=== PATIENT | male | born 1945 | race Caucasian/White ===

== ENCOUNTER 2021-10-01 08:08 | Day surgery (SDC) | payer MEDICARE, OTHER ==
[2021-09-29 12:08] VITALS: BMI 29.2
[~2021-10-01 08:08] MED LIST: LACTATED RINGERS 1,000 ML IV SCH
[2021-10-01 08:51] VITALS: RESP 16; TEMP 97.1
[2021-10-01] MEDS ORDERED: LACTATED RINGERS 1,000 ML IV ONE (08:58)
[2021-10-01] MEDS ORDERED: PROPOFOL 10 MG/ML 20 ML VIAL IV ONE (09:19)
--- NOTE | 2021-10-01 09:21 | P.GSHP ---
History of Present Illness H&P Date: 10/01/21 Chief Complaint: Screening colonoscopy This a 76-year-old male who presents today for screening colonoscopy. Patient denies any significant GI complaints. Past Medical History Past Medical History: Blood Disorder, GERD/Reflux, Hypertension Additional Past Medical History / Comment(s): THALASSEMIA ANEMIA., SCIATICA History of Any Multi-Drug Resistant Organisms: None Reported Past Surgical History: Appendectomy, Tonsillectomy Additional Past Surgical History / Comment(s): APPENDECTOMY X2 WITH MESH, COLONOSCOPY Past Anesthesia/Blood Transfusion Reactions: No Reported Reaction, Motion Sickness Additional Past Anesthesia/Blood Transfusion Reaction / Comment(s): JEHOVAH WITNESSS- NO BLOOD PRODUCTS. Past Psychological History: Depression Smoking Status: Never smoker Past Alcohol Use History: None Reported Past Drug Use History: None Reported - Past Family History Father Additional Family Medical History / Comment(s): PARTIAL LUNG REMOVED, ? COLON RESECTION Medications and Allergies Home Medications Medication Instructions Recorded Confirmed Type Ascorbic Acid [Vitamin C] 500 mg PO HS 09/29/21 09/29/21 History Cholecalciferol [Vitamin D3 (25 50 mcg PO DAILY 09/29/21 09/29/21 History Mcg = 1000 Iu)] Citalopram Hydrobromide [CeleXA] 20 mg PO DAILY 09/29/21 09/29/21 History Famotidine [Pepcid] 40 mg PO HS 09/29/21 09/29/21 History Ferrous Sulfate [Feosol] 325 mg PO HS 09/29/21 09/29/21 History Gabapentin 600 mg PO HS 09/29/21 09/29/21 History Loratadine 10 mg PO DAILY 09/29/21 09/29/21 History Multivit-Min/Folic/Vit K/Lycop 1 each PO DAILY 09/29/21 09/29/21 History [Men's Multivitamin Tablet] atenoloL [Tenormin] 25 mg PO DAILY 09/29/21 09/29/21 History Allergies Allergy/AdvReac Type Severity Reaction Status Date / Time Penicillins Allergy Unknown Unknown Verified 10/01/21 08:38 Surgical - Exam Vital Signs Temp Pulse Resp BP Pulse Ox 97.1 F L 59 L 16 154/89 97 10/01/21 08:40 10/01/21 08:40 10/01/21 08:40 10/01/21 08:40 10/01/21 08:40 - General well developed, well nourished, no distress - Eyes PERRL - ENT normal pinna - Neck no masses - Respiratory normal expansion - Cardiovascular Rhythm: regular - Abdomen Abdomen: soft, non tender Assessment and Plan Assessment: We'll perform screening colonoscopy.
--- NOTE | 2021-10-01 09:30 | P.OP ---
Date of Procedure: 10/01/21 Preoperative Diagnosis: Screening colonoscopy Postoperative Diagnosis: Severe diverticulosis of sigmoid colon Procedure(s) Performed: Colonoscopy Anesthesia: MAC Surgeon: Julian Beaulieu Pathology: none sent Condition: stable Disposition: PACU Description of Procedure: The patient's placed on the endoscopy table in the lateral position. He received IV sedation. Digital rectal exam was performed which revealed no ebonized. The flexible colonoscope was then placed patient anus and passed throughout the colon. In the sigmoid colon there was severe diverticulosis of colon. The colon appeared to be slightly inflamed. At this point it was decided not to proceed any further with colonoscopy in order to prevent injury to the valve. Scope withdrawn. The rectum appeared normal. Scope withdrawn for patient. Patient was scheduled for a barium enema.
[2021-10-01 10:06] VITALS: PULSE 58
[2021-10-01 10:27] VITALS: BP 131/71
--- NOTE | 2021-10-02 14:33 | FL ---
EXAMINATION TYPE: FL barium enema w air contrast DATE OF EXAM: 10/01/2021 COMPARISON: NONE HISTORY: Incomplete colonoscopy TECHNIQUE: A double contrast barium enema study is performed. A total of 4 minutes and 21 seconds o f fluoroscopic time was utilized during procedure and 34 images obtained. FINDINGS: Admittance Attendant view of the abdomen shows overall non-obstructive bowel gas pattern. Postsurgical ch fallon is previous hernia repair. Assessment for small polyps is limited due to retained fecal debris. There is extensive diverticulosi s of the sigmoid colon which demonstrates extensive redundancy. No annular constricting lesion or foc al mass. Question a small 3 mm polyp within the right colon near the cecum just distal to the ileocecal valve. No evidence of any obstructing or constricting lesion throughout the colon. The terminal ileum was refluxed and appears within normal limits. IMPRESSION: 1. Extensive redundancy of the sigmoid colon with the findings compatible with evidence of diverticul osis. There is a short segmental area of mild narrowing or reduced caliber of the distal sigmoid colo n which could be related to severe diverticulosis. Consider CT colonography if clinically warranted. 2. There is limitation and assessment for small polyps due to retained fecal debris. Question a small 3 mm polyp within the right colon just distal to the ileocecal valve.
== END 2021-10-01 10:40 | disposition home or self-care (01) ==
LOC: ORWHC2ENDO 08:08
PROVIDERS: ATTEND Surgery
DX: Z12.11 Encounter for screening for malignant neoplasm of colon (principal); K57.30 Diverticulosis of large intestine without perforation or abscess without bleeding; Z53.09 Procedure and treatment not carried out because of other contraindication; I10 Essential (primary) hypertension; K21.9 Gastro-esophageal reflux disease without esophagitis; D56.9 Thalassemia, unspecified; M54.30 Sciatica, unspecified side; F32.A Depression, unspecified; Z79.899 Other long term (current) drug therapy; Z88.0 Allergy status to penicillin; Z90.49 Acquired absence of other specified parts of digestive tract; Z90.89 Acquired absence of other organs
CPT/HCPCS: 74280; J2704; G0121

== ENCOUNTER 2021-10-09 17:45 | Inpatient (IN) | payer MEDICARE, OTHER ==
[2021-10-09] MEDS ORDERED: MECLIZINE 12.5 MG TAB PO STA (18:56)
[2021-10-09] MEDS ORDERED: DIAZEPAM 5 MG/ML 2 ML INJ IVP STA (18:56)
[2021-10-09] MEDS ORDERED: SODIUM CHLORIDE 0.9% 1,000 ML IV STA (18:57)
[2021-10-09] MEDS ORDERED: ONDANSETRON 4 MG/2 ML VIAL IVP STA (18:57)
[2021-10-09] MEDS ORDERED: SODIUM CHLORIDE 0.9% 1,000 ML IV ONE (19:15)
[2021-10-09] MEDS ORDERED: ONDANSETRON 4 MG/2 ML VIAL IVP ONE (19:15)
[2021-10-09] MEDS ORDERED: DIAZEPAM 5 MG/ML 2 ML INJ IVP ONE (19:15)
[2021-10-09] MEDS ORDERED: MECLIZINE 25 MG TAB PO ONE (19:15)
[2021-10-09 19:44] LABS: Anisocytosis Slight; Basophils % (A) 0 %; Eosinophils % (A) 0 %; HCT 37.2 % (39.0-53.0); HGB 11.7 gm/dL (13.0-17.5); Hypochromasia Slight; Lymphocytes # (A) 0.6 k/uL (1.0-4.8); Lymphocytes % (A) 6 %; MCH 23.2 pg (25.0-35.0); MCHC 31.4 g/dL (31.0-37.0); Mean Platelet Volume 7.8; Microcytosis Slight; Monocytes # (A) 0.3 k/uL (0-1.0); Monocytes % (A) 3 %; Neutrophils # (A) 8.7 k/uL (1.3-7.7); Neutrophils % (A) 90 %; Platelet Count 179 k/uL (150-450); Poikilocytosis Slight; RBC 5.03 m/uL (4.30-5.90); RDW 16.5 % (11.5-15.5); WBC 9.8 k/uL (3.8-10.6)
[2021-10-09 19:52] LABS: ALT 10 U/L (4-49); AST 20 U/L (17-59); African American GFR (CKD) >90 (>60 ml/min/1.73 sqM); Albumin 3.4 g/dL (3.5-5.0); Alkaline Phosphatase 52 U/L (38-126); Anion Gap 4 mmol/L; Blood Urea Nitrogen 19 mg/dL (9-20); Calcium 8.3 mg/dL (8.4-10.2); Carbon Dioxide 25 mmol/L (22-30); Chloride 111 mmol/L (98-107); Glucose 140 mg/dL (74-99); Non-African American GFR(CKD) 78 (>60 ml/min/1.73 sqM); Potassium 4.2 mmol/L (3.5-5.1); Sodium 140 mmol/L (137-145); Total Bilirubin 0.9 mg/dL (0.2-1.3); Total Protein 6.2 g/dL (6.3-8.2)
[2021-10-09 19:55] LABS: INR 1.1 (<1.2)
--- NOTE | 2021-10-09 20:27 | ED ---
General Adult HPI - General Chief complaint: Nausea/Vomiting/Diarrhea Stated complaint: Nausea and vomiting Time Seen by Provider: 10/09/21 18:00 Source: patient, EMS Mode of arrival: EMS Limitations: no limitations - History of Present Illness Initial comments: 76-year-old male with past medical history of thalassemia, hypertension presents to the emergency department with vertiginous symptoms. States that they were sudden onset around 10 AM this morning. He has room spinning sensation which is worse with positional changes. Patient has been laying down with his eyes closed. He denies any associated headache or visual changes. No recent head trauma. Denies any chiropractic manipulation of the neck. No unilateral numbness or weakness in his extremities. No history of stroke. Patient has been nauseated without vomiting. Does not have any medications at home to take for his symptoms. Admits 1 history of previous in the past however this resolved with out any intervention and was short-term. No other alleviating, precipitating or modifying factors - Related Data Home Medications Medication Instructions Recorded Confirmed Ascorbic Acid [Vitamin C] 500 mg PO HS 09/29/21 10/09/21 Cholecalciferol [Vitamin D3 (25 50 mcg PO DAILY 09/29/21 10/09/21 Mcg = 1000 Iu)] Citalopram Hydrobromide [CeleXA] 20 mg PO DAILY 09/29/21 10/09/21 Famotidine [Pepcid] 40 mg PO HS 09/29/21 10/09/21 Ferrous Sulfate [Feosol] 325 mg PO HS 09/29/21 10/09/21 Gabapentin 600 mg PO BID 09/29/21 10/09/21 Loratadine 10 mg PO DAILY 09/29/21 10/09/21 Multivit-Min/Folic/Vit K/Lycop 1 tab PO DAILY 09/29/21 10/09/21 [Men's Multivitamin Tablet] atenoloL [Tenormin] 25 mg PO DAILY 09/29/21 10/09/21 Allergies Allergy/AdvReac Type Severity Reaction Status Date / Time Penicillins Allergy Unknown Unknown Verified 10/09/21 19:27 Review of Systems ROS Statement: Those systems with pertinent positive or pertinent negative responses have been documented in the HPI. ROS Other: All systems not noted in ROS Statement are negative. Past Medical History Past Medical History: Blood Disorder, GERD/Reflux, Hypertension Additional Past Medical History / Comment(s): THALASSEMIA ANEMIA., SCIATICA History of Any Multi-Drug Resistant Organisms: None Reported Past Surgical History: Appendectomy, Tonsillectomy Additional Past Surgical History / Comment(s): APPENDECTOMY X2 WITH MESH, COLONOSCOPY Past Anesthesia/Blood Transfusion Reactions: No Reported Reaction, Motion Sickness Additional Past Anesthesia/Blood Transfusion Reaction / Comment(s): JEHOVAH WITNESSS- NO BLOOD PRODUCTS. Past Psychological History: Depression Smoking Status: Never smoker Past Alcohol Use History: None Reported Past Drug Use History: None Reported - Past Family History Father Additional Family Medical History / Comment(s): PARTIAL LUNG REMOVED, ? COLON RESECTION General Exam Limitations: no limitations General appearance: alert, in distress Head exam: Present: atraumatic, normocephalic, normal inspection Eye exam: Present: PERRL, EOMI, nystagmus (rotary). Absent: scleral icterus, conjunctival injection, periorbital swelling ENT exam: Present: normal exam, mucous membranes moist Neck exam: Present: normal inspection. Absent: tenderness, meningismus, lymphadenopathy Respiratory exam: Present: normal lung sounds bilaterally. Absent: respiratory distress, wheezes, rales, rhonchi, stridor Cardiovascular Exam: Present: regular rate, normal rhythm, normal heart sounds. Absent: systolic murmur, diastolic murmur, rubs, gallop, clicks GI/Abdominal exam: Present: soft, normal bowel sounds. Absent: distended, tenderness, guarding, rebound, rigid Extremities exam: Present: normal inspection, full ROM, normal capillary refill. Absent: tenderness, pedal edema, joint swelling, calf tenderness Back exam: Present: normal inspection Neurological exam: Present: alert, oriented X3, CN II-XII intact Psychiatric exam: Present: normal affect, normal mood Skin exam: Present: warm, dry, intact, normal color. Absent: rash Course Vital Signs 10/09/21 10/09/21 10/09/21 17:48 21:53 23:24 Temperature 98.9 F 98.1 F Pulse Rate 70 71 Pulse Rate [ 75 Pulse Oximetery ] Respiratory 20 18 20 Rate Blood Pressure 146/67 126/69 Blood Pressure 129/68 [Left Arm] O2 Sat by Pulse 99 95 97 Oximetry EKG Findings - EKG Comments: EKG Findings:: EKG demonstrates sinus rhythm with a rate of 70. HI interval 155. QRS 87. QTC of 434. No acute ST segment elevations or depressions Medical Decision Making - Medical Decision Making Upon arrival patient is placed into room 24. A thorough history and physical exam was performed. Patient does have rotary nystagmus on physical exam. IV is established and laboratory studies are conducted. Patient is given 2 mg of Valium, 4 mg of Zofran and 25 mg of oral meclizine. He does go over for a CT of his brain as well as CT angiography which demonstrates no acute intracranial process. Patient is reevaluated and continues to have persistent vertiginous symptoms and nausea with medication administration. He was given Protonix, Reglan for persistent symptoms. Recommended admission for neurology consultation which the patient did agree to. Spoke with Ileana from [facility] who agreed to admit the patient. He was taken to the floor in stable condition - Lab Data Result diagrams: 10/11/21 07:00 10/11/21 07:00 Lab Results 10/09/21 10/09/21 10/09/21 Range/Units 19:34 19:34 19:34 WBC (3.8-10.6) k/uL RBC (4.30-5.90) m/uL Hgb (13.0-17.5) gm/dL Hct (39.0-53.0) % MCV (80.0-100.0) fL MCH (25.0-35.0) pg MCHC (31.0-37.0) g/dL RDW (11.5-15.5) % Plt Count (150-450) k/uL MPV Neutrophils % % Lymphocytes % % Monocytes % % Eosinophils % % Basophils % % Neutrophils # (1.3-7.7) k/uL Lymphocytes # (1.0-4.8) k/uL Monocytes # (0-1.0) k/uL Eosinophils # (0-0.7) k/uL Basophils # (0-0.2) k/uL Hypochromasia Poikilocytosis Anisocytosis Microcytosis PT 12.0 (9.0-12.0) sec INR 1.1 (<1.2) Sodium 140 (137-145) mmol/L Potassium 4.2 (3.5-5.1) mmol/L Chloride 111 H (98-107) mmol/L Carbon Dioxide 25 (22-30) mmol/L Anion Gap 4 mmol/L BUN 19 (9-20) mg/dL Creatinine 0.95 (0.66-1.25) mg/dL Est GFR (CKD-EPI)AfAm >90 (>60 ml/min/1.73 sqM) Est GFR (CKD-EPI)NonAf 78 (>60 ml/min/1.73 sqM) Glucose 140 H (74-99) mg/dL Calcium 8.3 L (8.4-10.2) mg/dL Total Bilirubin 0.9 (0.2-1.3) mg/dL AST 20 (17-59) U/L ALT 10 (4-49) U/L Alkaline Phosphatase 52 (38-126) U/L Troponin I <0.012 (0.000-0.034) ng/mL Total Protein 6.2 L (6.3-8.2) g/dL Albumin 3.4 L (3.5-5.0) g/dL 10/09/21 Range/Units 19:34 WBC 9.8 (3.8-10.6) k/uL RBC 5.03 (4.30-5.90) m/uL Hgb 11.7 L (13.0-17.5) gm/dL Hct 37.2 L (39.0-53.0) % MCV 74.0 L (80.0-100.0) fL MCH 23.2 L (25.0-35.0) pg MCHC 31.4 (31.0-37.0) g/dL RDW 16.5 H (11.5-15.5) % Plt Count 179 (150-450) k/uL MPV 7.8 Neutrophils % 90 % Lymphocytes % 6 % Monocytes % 3 % Eosinophils % 0 % Basophils % 0 % Neutrophils # 8.7 H (1.3-7.7) k/uL Lymphocytes # 0.6 L (1.0-4.8) k/uL Monocytes # 0.3 (0-1.0) k/uL Eosinophils # 0.0 (0-0.7) k/uL Basophils # 0.0 (0-0.2) k/uL Hypochromasia Slight Poikilocytosis Slight Anisocytosis Slight Microcytosis Slight PT (9.0-12.0) sec INR (<1.2) Sodium (137-145) mmol/L Potassium (3.5-5.1) mmol/L Chloride (98-107) mmol/L Carbon Dioxide (22-30) mmol/L Anion Gap mmol/L BUN (9-20) mg/dL Creatinine (0.66-1.25) mg/dL Est GFR (CKD-EPI)AfAm (>60 ml/min/1.73 sqM) Est GFR (CKD-EPI)NonAf (>60 ml/min/1.73 sqM) Glucose (74-99) mg/dL Calcium (8.4-10.2) mg/dL Total Bilirubin (0.2-1.3) mg/dL AST (17-59) U/L ALT (4-49) U/L Alkaline Phosphatase (38-126) U/L Troponin I (0.000-0.034) ng/mL Total Protein (6.3-8.2) g/dL Albumin (3.5-5.0) g/dL Disposition Clinical Impression: Vertigo Disposition: ADMITTED IP TO THIS [facility] Condition: Stable Is patient prescribed a controlled substance at d/c from ED?: No Decision to Admit Reason: Admit from EC Decision Date: 10/09/21 Decision Time: 22:02
--- NOTE | 2021-10-09 20:48 | CT ---
EXAMINATION TYPE: CT brain wo con CT DLP: 1134.8 mGycm, Automated exposure control for dose reduction was used. DATE OF EXAM: 10/09/2021 8:15 PM COMPARISON: None. CLINICAL INDICATION:Male, 76 years old with history of DIZZINESS, VERTIGO TECHNIQUE: Brain: Multiple axial CT images of the brain were obtained without IV contrast. FINDINGS: Brain: Extra-axial spaces: No abnormal extra-axial fluid collections. Ventricular system: Within normal limits Cerebral parenchyma: No acute intraparenchymal hemorrhage or mass effect. The hearn-white junction is well differentiated. Cerebellum: Unremarkable. Mass effect: No evidence of midline shift. Intracranial vasculature: Atherosclerotic calcifications of the intracranial vessels. Soft tissues: Normal. Calvarium/osseous structures: No depressed skull fracture. Paranasal sinuses and mastoid air cells: Mild scattered paranasal sinus disease. Visualized orbits: Orbital contents are intact. IMPRESSION: No acute intracranial process.
--- NOTE | 2021-10-09 20:51 | CT ---
EXAMINATION TYPE: CT angio head neck CT DLP: 649.9 mGycm, Automated exposure control for dose reduction was used. DATE OF EXAM: 10/09/2021 8:33 PM COMPARISON: CT brain same day.. CLINICAL INDICATION:Male, 76 years old with history of DIZZINESS, VERTIGO TECHNIQUE: Axially acquired helical CT angiogram of the head and neck was obtained with contrast util izing 75 cc of Isovue-370 administered intravenously. Axial images are supplemented with 3D reconstru ctions which were post-processed at an independent workstation. NASCET criteria used. FINDINGS: CTA HEAD: No evidence of acute intracranial hemorrhage, mass effect, or midline shift. The ventricles, sulci, a nd cisterns are unremarkable. The visualized portions of the internal carotid arteries, middle cerebral arteries, anterior cerebral arteries, and posterior cerebral arteries are patent. The basilar and vertebral arteries are patent. CTA NECK: Right Carotid System: The common carotid artery and external carotid artery are patent. The carotid bifurcation demonstrate s no evidence of hemodynamically significant stenosis. The remaining portions of the internal carotid artery demonstrate normal size without significant narrowing. Left Carotid System: The common carotid artery and external carotid artery are patent. The carotid bifurcation demonstrate s no evidence of hemodynamically significant stenosis. The remaining portions of the internal carotid artery demonstrate normal size without significant narrowing. Vertebral arteries are patent without evidence hemodynamically significant stenosis. There is a three-vessel aortic arch. The origins of the great vessels are patent. No evidence of hemo dynamically significant stenosis. IMPRESSION: 1. No evidence of dissection of the cervical internal carotid arteries or vertebral arteries or any e vidence of significant stenosis at the carotid bifurcations. 2. No evidence of high-grade stenosis or intracranial aneurysm.
[2021-10-09] MEDS ORDERED: ACETAMINOPHEN TAB 325 MG TAB PO STA (21:36)
[2021-10-09] MEDS ORDERED: METOCLOPRAMIDE 5 MG/ML 2 ML VIAL IVP STA (21:36)
[2021-10-09] MEDS ORDERED: ACETAMINOPHEN TAB 325 MG TAB PO PRN (22:02)
[2021-10-09] MEDS ORDERED: NALOXONE 0.4 MG/ML 1 ML VIAL IV PRN (22:02)
[2021-10-09] MEDS: PANTOPRAZOLE 40 MG/10 ML VIAL IV SCH (23:42)
[2021-10-09] MEDS: SODIUM CHLORIDE 0.9% 1,000 ML IV SCH (23:43)
[2021-10-10] MEDS: PANTOPRAZOLE 40 MG/10 ML VIAL IV SCH (07:30)
[2021-10-10 07:39] LABS: Calcium 8.5 mg/dL (8.4-10.2); Potassium 3.9 mmol/L (3.5-5.1)
[2021-10-10 07:56] LABS: Anisocytosis Slight; Basophils % (A) 0 %; Eosinophils # (A) 0.1 k/uL (0-0.7); Eosinophils % (A) 1 %; HCT 36.3 % (39.0-53.0); HGB 11.2 gm/dL (13.0-17.5); Hypochromasia Moderate; Lymphocytes # (A) 2.4 k/uL (1.0-4.8); Lymphocytes % (A) 22 %; MCH 23.4 pg (25.0-35.0); MCHC 30.7 g/dL (31.0-37.0); MCV 76.3 fL (80.0-100.0); Mean Platelet Volume 8.6; Microcytosis Slight; Monocytes # (A) 0.7 k/uL (0-1.0); Monocytes % (A) 6 %; Neutrophils # (A) 7.4 k/uL (1.3-7.7); Neutrophils % (A) 69 %; Platelet Count 187 k/uL (150-450); RBC 4.76 m/uL (4.30-5.90); WBC 10.8 k/uL (3.8-10.6)
[2021-10-10] MEDS: MECLIZINE 12.5 MG TAB PO PRN (10:23)
--- NOTE | 2021-10-10 10:48 | P.CNNES ---
History of Present Illness Consult date: 10/10/21 Requesting physician: Awilda Caba Reason for Consult: intractable vertigo History of Present Illness: This is a 76-year-old gentleman with history of hypertension, thalassemia who presented emergency department on 10/09/2021 because of the dizziness. Noticed dizziness since 10:00 in the morning yesterday. He describes as if the room is spinning and it's worse with position. She does have nausea but denies any vom iting. He felt he has sinus infection a week earlier. He denies of any head trauma, any visual disturbance, headache, any focal weakness. He denies any history of stroke in the past. Today he feels his nausea is somewhat improved compared to initial presentation. Some of the workup in the hospital consisted of: CT of the head is reported as no acute intracranial process. CT and drug. The head and neck was reported as no evidence of dissection of cervical internal carotid arteries or vertebral arteries or any evidence of significant stenosis of the carotid bifurcation. No evidence of high-grade stenosis or intracranial aneurysm. Review of Systems Review of system: The 12 point system was reviewed and apparent positive and negative per HPI. Past Medical History Past Medical History: Blood Disorder, GERD/Reflux, Hypertension Additional Past Medical History / Comment(s): THALASSEMIA ANEMIA., SCIATICA History of Any Multi-Drug Resistant Organisms: None Reported Past Surgical History: Appendectomy, Tonsillectomy Additional Past Surgical History / Comment(s): APPENDECTOMY X2 WITH MESH, COLON OSCOPY Past Anesthesia/Blood Transfusion Reactions: No Reported Reaction, Motion Sickness Additional Past Anesthesia/Blood Transfusion Reaction / Comment(s): JEHOVAH WITNESSS- NO BLOOD PRODUCTS. Past Psychological History: Depression Smoking Status: Never smoker Past Alcohol Use History: None Reported Past Drug Use History: None Reported - Past Family History Father Additional Family Medical History / Comment(s): PARTIAL LUNG REMOVED, ? COLON RESECTION Medications and Allergies Home Medications Medication Instructions Recorded Confirmed Type Ascorbic Acid [Vitamin C] 500 mg PO HS 09/29/21 10/09/21 History Cholecalciferol [Vitamin D3 (25 50 mcg PO DAILY 09/29/21 10/09/21 History Mcg = 1000 Iu)] Citalopram Hydrobromide [CeleXA] 20 mg PO DAILY 09/29/21 10/09/21 History Famotidine [Pepcid] 40 mg PO HS 09/29/21 10/09/21 History Ferrous Sulfate [Feosol] 325 mg PO HS 09/29/21 10/09/21 History Gabapentin 600 mg PO BID 09/29/21 10/09/21 History Loratadine 10 mg PO DAILY 09/29/21 10/09/21 History Multivit-Min/Folic/Vit K/Lycop 1 tab PO DAILY 09/29/21 10/09/21 History [Men's Multivitamin Tablet] atenoloL [Tenormin] 25 mg PO DAILY 09/29/21 10/09/21 History Allergies Allergy/AdvReac Type Severity Reaction Status Date / Time Penicillins Allergy Unknown Unknown Verified 10/09/21 19:27 Physical Examination - Vital Signs Vital Signs: Vital Signs Temp Pulse Pulse Resp BP BP BP 10/10/21 07:40 74 18 10/10/21 07:00 98.2 F 67 16 109/52 10/10/21 02:41 98.3 F 74 18 113/61 10/09/21 23:24 98.1 F 75 20 129/68 10/09/21 21:53 71 18 126/69 10/09/21 17:48 98.9 F 70 20 146/67 Pulse Ox 10/10/21 07:40 10/10/21 07:00 94 L 10/10/21 02:41 97 10/09/21 23:24 97 10/09/21 21:53 95 10/09/21 17:48 99 Intake and Output 10/09/21 10/10/21 10/10/21 22:59 06:59 14:59 Output Total 475 Balance -475 Output: Urine 475 Other: Voiding Method Urinal Urinal # Voids 1 Weight 87.09 kg 87.09 kg GENERAL: The patient is lying in bed and is mild acute distress. CHEST: The heart rate is regular rate rhythm. No murmurs to auscultation. No carotid bruit bilaterally. LUNG: Clear to auscultation bilaterally no wheezing noted throughout. Not labored breathing. ABDOMEN/GI: Bowel sounds present in all 4 quadrants. No tenderness to palpation throughout. NEUROLOGICAL: Higher mental function: The patient is awake, alert, oriented to self, place and time. Patient is following commands. No aphasia and no neglect. Cranial nerves: The pupils are round, equal and reactive to light and accommodation. Visual mclean are full to confrontation throughout. Extraocular movement is rotatory nystagmus looking to left and upward. Facial sensation is normal to touch throughout. The facial strength is normal throughout. Hearing is mildly decreased bilaterally to hand rub. Tongue is midline and moved [id number] without any difficulty. No dysarthria is noted. Shoulder shrug is normal bilaterally. Motor: Gait was attempted but patient was feeling dizzy and could not tolerate stand up. The strength is 5 over 5 throughout. Normal tone and bulk. Cerebellum: Normal finger to nose heel to osborne bilaterally. Sensation: Sensation is normal to touch throughout. Reflexes (right/left): 2+ throughout. Plantars are downgoing bilaterally. Results - Laboratory Findings CBC and BMP: 10/10/21 06:58 10/10/21 06:58 Abnormal Lab Findings: Abnormal Labs 10/09/21 10/09/21 10/10/21 19:34 19:34 06:58 WBC 10.8 H Hgb 11.7 L 11.2 L Hct 37.2 L 36.3 L MCV 74.0 L 76.3 L MCH 23.2 L 23.4 L MCHC 30.7 L RDW 16.5 H 17.0 H Neutrophils # 8.7 H Lymphocytes # 0.6 L Chloride 111 H Glucose 140 H Calcium 8.3 L Total Protein 6.2 L Albumin 3.4 L 10/10/21 06:58 WBC Hgb Hct MCV MCH MCHC RDW Neutrophils # Lymphocytes # Chloride 112 H Glucose Calcium Total Protein Albumin Assessment and Plan Assessment: Acute vertigo and is seems the peripheral rather than central. Appears acute vestibular labyrinthitis. Hypertension Thalasemia Plan: In the ED the patient was given Valium of a total of 4 mg in total, meclizine a total of 50 mg, Reglan and Zofran. I started the patient on Antivert 12.5 mg 1 tablet 3 times a day when necessary, and to use Zofran 4 mg every hours as needed. Consulted for PT and OT for gait training. Every 4 hours neuro checks From a neurologic perspective patient does not need any further imaging at this time since it appears peripheral than central. Patient has no focal deficits. But if patients symptoms don't improve recommend MRI Brain to rule out any central causes. Recommend the patient to follow-up with ENT and possible consider vestibular rehab therapy as an outpatient. Defer the rest of the medical management to primary team The plan is discussed with the patient's nurse. Thank you for consultation. John Paul M.D. Neuro-hospitalist Time with Patient: Greater than 30
[2021-10-10] MEDS: atenoloL 25 MG TAB PO SCH (16:37)
[2021-10-10] MEDS: ONDANSETRON 4 MG/2 ML VIAL IVP PRN (16:37)
[2021-10-10 17:06] LABS: Appearance,Urine Clear (Clear); Bilirubin,Urine Negative (Negative); Blood,Urine Negative (Negative); Color,Urine Yellow; Glucose,Urine (UA) Negative (Negative); Ketones,Urine 1+ (Negative); Leukocyte Esterase,Urine Negative (Negative); Nitrite,Urine Negative (Negative); PH, Urine 5.5 (5.0-8.0); Protein,Urine Negative (Negative); Specific Gravity,Urine 1.024 (1.001-1.035); Urobilinogen,Urine <2.0 mg/dL (<2.0)
[2021-10-10] MEDS: SODIUM CHLORIDE 0.9% 1,000 ML IV SCH ×2 (17:37→23:19)
--- NOTE | 2021-10-10 18:05 | HP ---
HISTORY AND PHYSICAL CHIEF COMPLAINT: Dizziness. HISTORY OF PRESENT ILLNESS: This 76-year-old gentleman with a past medical history hypertension, DJD, history of thalassemia, was complaining of significant dizziness. Patient had significant loss of balance. The patient also had nausea and vomiting. Patient is keeping his head steady and eyes closed to avoid symptoms. The initial neurology evaluation has been done and it is negative. Neurology has seen the patient and is considering the possibility of peripheral vertigo caused by possibly vestibular labyrinthitis. There is no history of any fever, rigors or chills. No history of headache, loss of consciousness, seizures. PAST MEDICAL HISTORY: Thalassemia, hypertension, GERD. MEDICATIONS: Home medications are reviewed and include Tenormin, multivitamins. Doses are reviewed. ALLERGIES: PENICILLIN. FAMILY HISTORY: Colonic resection. SOCIAL HISTORY: No history of smoking. REVIEW OF SYSTEMS: Fourteen-point review of systems negative except as mentioned earlier. PHYSICAL EXAMINATION: Pulse is 63, blood pressure 128/53, respiration 16. HEENT: Conjunctivae normal. No nystagmus. CARDIOVASCULAR: S1, S2 muffled. RESPIRATION: Breath sounds diminished at the bases. No rhonchi. No crackles. ABDOMEN: Soft, nontender. LEGS: No edema. No swelling. NERVOUS SYSTEM: Cranial nerves normal except dizziness while moving the head. No focal deficit. SKIN: No ulcer, rash, bleeding. JOINTS: No active deforming arthropathy. LABS: Reviewed. WBC 10.2. ASSESSMENT: 1. Vertigo and dizziness for evaluation; possible peripheral vestibular labyrinthitis. 2. Hypertension. 3. Gastroesophageal reflux disease. 4. Thalassemia. RECOMMENDATIONS AND DISCUSSION: In this 76-year-old gentleman who presented with multiple complex medical issues, we will monitor the patient closely. Continue the IV fluids. I recommend symptomatic treatment. The patient was started on Antivert. Continue the rest of the medications. Prognosis guarded. Resume the home medications. Monitor blood pressure. Further recommendations to follow. MMODL / IJN: [id number] /
[2021-10-10] MEDS: GABAPENTIN 300 MG CAP PO SCH (19:45)
[2021-10-10] MEDS: FAMOTIDINE 20 MG TAB PO SCH (19:45)
[2021-10-10] MEDS: ASCORBIC ACID 500 MG TAB PO SCH (19:45)
[2021-10-10] MEDS: FERROUS SULFATE 325 MG TAB PO SCH (19:45)
[2021-10-11] MEDS: PANTOPRAZOLE 40 MG/10 ML VIAL IV SCH (07:21)
[2021-10-11] MEDS: CHOLECALCIFEROL 25 MCG (1000 IU) TABLET PO SCH (07:22)
[2021-10-11] MEDS: atenoloL 25 MG TAB PO SCH (07:22)
[2021-10-11] MEDS: LORATADINE 10 MG TAB PO SCH (07:22)
[2021-10-11] MEDS: GABAPENTIN 300 MG CAP PO SCH ×2 (07:22→20:36)
[2021-10-11] MEDS: CITALOPRAM HYDROBROMIDE 20 MG TAB PO SCH (07:22)
[2021-10-11] MEDS: MULTIVITAMINS, THERA 1 EACH TAB PO SCH (07:22)
[2021-10-11] MEDS: MECLIZINE 12.5 MG TAB PO PRN (07:24)
[2021-10-11] MEDS: ONDANSETRON 4 MG/2 ML VIAL IVP PRN (07:25)
[2021-10-11] MEDS ORDERED: MECLIZINE 25 MG TAB PO PRN (09:52)
[2021-10-11 11:42] LABS: HCT 34.3 % (39.6-50.0); HGB 10.6 g/dL (13.0-17.0); MCH 22.5 pg (27.0-32.0); MCHC 30.9 g/dL (32.0-37.0); MCV 72.8 fL (80.0-97.0); Mean Platelet Volume 11.7 fL (9.5-12.2); NRBC Per 100 WBC 0 /100 WBCS (0.0-0.0); Platelet Count 178 X 10*3/uL (140-440); RBC 4.71 X 10*6/uL (4.40-5.60); RDW 17.7 % (11.5-14.5); WBC 9.46 X 10*3/uL (4.50-10.00)
[2021-10-11] MEDS ORDERED: TEMAZEPAM 15 MG CAP PO PRN (11:58)
[2021-10-11 12:00] LABS: African American GFR (CKD) 96.5 (60.0-200.0); Anion Gap 10.2 mmol/L (10.00-18.00); BUN/Creat Ratio 11.67 Ratio (12.00-20.00); Blood Urea Nitrogen 10.5 mg/dL (9.0-27.0); Calcium 8.7 mg/dL (8.7-10.3); Carbon Dioxide 22.8 mmol/L (20.0-27.5); Non-African American GFR(CKD) 83.3 (60.0-200.0); Potassium 3.8 mmol/L (3.5-5.5)
[2021-10-11 12:17] LABS: Basophils # (A) 0.03 X 10*3/uL (0.00-0.10); Basophils % (A) 0.3 %; Eosinophils # (A) 0.17 X 10*3/uL (0.04-0.35); Eosinophils % (A) 1.8 %; Immature Grans, Automated 0.4 %; Lymphocytes % (A) 27.5 %; Microcytosis (M) 2+; Monocytes # (A) 0.66 X 10*3/uL (0.20-1.00); Neutrophils # (A) 5.96 X 10*3/uL (1.80-7.70)
--- NOTE | 2021-10-11 14:13 | P.PN ---
Subjective Progress Note Date: 10/11/21 The patient is seen at bedside and continues to feel dizzy. He stated for the past 2-3 days he has been having visual hallucination especially when he closes his eyes he has dream and feels as if they are true. He has been having memory loss that he is concerned about for the past 2 years. Objective - Vital Signs Vital signs: Vital Signs Temp 98.4 F 10/11/21 07:00 Pulse 62 10/11/21 07:00 Resp 14 10/11/21 07:10 BP 135/68 10/11/21 07:00 Pulse Ox 95 10/11/21 07:00 Intake & Output 10/10/21 10/11/21 10/11/21 18:59 06:59 18:59 Output Total 400 40 Balance -400 -40 Output: Urine 400 40 Other: Voiding Method Urinal Urinal Urinal # Voids 1 - Exam GENERAL: The patient is lying in bed and is mild acute distress. NEUROLOGICAL: Higher mental function: The patient is awake, alert, oriented to self, place and time. Patient is following commands. No aphasia and no neglect. Cranial nerves: The pupils are round, equal and reactive to light and accommodation. Visual mclean are full to confrontation throughout. Extraocular movement is rotatory nystagmus looking to left and upward. Facial sensation is normal to touch throughout. The facial strength is normal throughout. Hearing is mildly decreased bilaterally to hand rub. Tongue is midline and moved [id number] without any difficulty. No dysarthria is noted. Shoulder shrug is normal bilaterally. Motor: Gait was attempted but patient was feeling dizzy and could not tolerate stand up. The strength is 5 over 5 throughout. Normal tone and bulk. Cerebellum: Normal finger to nose heel to osborne bilaterally. Sensation: Sensation is normal to touch throughout. Reflexes (right/left): 2+ throughout. Plantars are downgoing bilaterally. WORK-UP: CT of the head is reported as no acute intracranial process. CT and drug. The head and neck was reported as no evidence of dissection of cervical internal carotid arteries or vertebral arteries or any evidence of si gnificant stenosis of the carotid bifurcation. No evidence of high-grade stenosis or intracranial aneurysm. - Labs CBC & Chem 7: 10/11/21 07:00 10/11/21 07:00 Labs: Abnormal Lab Results - Last 24 Hours (Table) 10/10/21 10/11/21 10/11/21 Range/Units 16:55 07:00 07:00 Hgb 10.6 L (13.0-17.0) g/dL Hct 34.3 L (39.6-50.0) % MCV 72.8 L (80.0-97.0) fL MCH 22.5 L (27.0-32.0) pg MCHC 30.9 L (32.0-37.0) g/dL RDW 17.7 H (11.5-14.5) % BUN/Creatinine Ratio 11.67 L (12.00-20.00) Ratio Urine Ketones 1+ H (Negative) Assessment and Plan Assessment: Acute vertigo and is seems the peripheral rather than central. Appears acute ve stibular labyrinthitis. Memory loss for past two years: Rule out any pseudo-demential/cognitive impa irement/neurodegenerative disease Hypertension Thalasemia Plan: Ordered MRI Brain and IAC w/ and w/o. Increased Melizine from 12.5mg 1 tab tid to 25mg 1 tab tid and was changed to scheduled. Continue Zofran 4 mg every hours as needed. Consulted for PT and OT for gait training. Recommend the patient to follow-up with ENT and possible consider vestibular rehab therapy as an outpatient. Regarding his memory loss for 2 years and visual hallcination for 2-3 days: Ordered MRI Brain and will obtain TSH, folate, vitamin B12, RPR. Ordered routine EEG. Rule out pseudo-dementia and neurodegenerative disease. Recommend neuropsych evaluation as outpatient for detail mental status examination. Defer the rest of the medical management to primary team The plan is discussed with the patient's nurse.. John Paul M.D. Neuro-hospitalist Time with Patient: Less than 30
[2021-10-11] MEDS: MECLIZINE 25 MG TAB PO SCH ×2 (15:45→20:36)
[2021-10-11] MEDS: amLODIPine 10 MG TAB PO SCH (18:14)
[2021-10-11] MEDS: SODIUM CHLORIDE 0.9% 1,000 ML IV SCH ×2 (18:41→21:33)
--- NOTE | 2021-10-11 19:27 | PN ---
PROGRESS NOTE DATE OF SERVICE: 10/11/2021 This 76-year-old gentleman who was admitted with vertigo and dizziness is being closely monitored at this time. The patient still has significant dizziness. Orthostatic vitals are negative. No chest pain. No palpitations. No fever. On exam, pulse is 65, blood pressure 151/75, respiration 14. HEENT: Conjunctivae normal. NECK: No jugular venous distention. CARDIOVASCULAR: S1, S2 muffled. RESPIRATION: Breath sounds diminished at the bases. A few scattered rhonchi. ABDOMEN: Soft. NERVOUS SYSTEM: No focal deficit. Labs are reviewed. ASSESSMENT: 1. Vertigo, dizziness for evaluation; possible peripheral vestibular labyrinthitis. Rule out posterior stroke. 2. Hypertension. 3. Gastroesophageal reflux disease. 4. Thalassemia. RECOMMENDATIONS AND DISCUSSION: I recommend to continue current medications, continue with the monitoring, symptomatic treatment. MRI has been ordered. See orders for further details. Closely follow with Neurology. Prognosis is guarded. Further recommendations to follow. Add Norvasc to the current regimen. MMODL / IJN: [id number] /
[2021-10-11] MEDS: FAMOTIDINE 20 MG TAB PO SCH (20:35)
[2021-10-11] MEDS: ASCORBIC ACID 500 MG TAB PO SCH (20:35)
[2021-10-11] MEDS: FERROUS SULFATE 325 MG TAB PO SCH (20:36)
[2021-10-12] MEDS ORDERED: amLODIPine 10 MG TAB ONE (08:00)
[2021-10-12] MEDS ORDERED: MECLIZINE 25 MG TAB ONE (08:00)
[2021-10-12] MEDS ORDERED: atenoloL 25 MG TAB ONE (08:00)
[2021-10-12 08:50] LABS: Anisocytosis Slight; Basophils % (A) 0 %; Eosinophils # (A) 0.2 k/uL (0-0.7); Eosinophils % (A) 2 %; HCT 38.1 % (39.0-53.0); HGB 11.8 gm/dL (13.0-17.5); Hypochromasia Moderate; Lymphocytes # (A) 2.6 k/uL (1.0-4.8); Lymphocytes % (A) 33 %; MCH 23.5 pg (25.0-35.0); Mean Platelet Volume 7.8; Microcytosis Slight; Monocytes # (A) 0.4 k/uL (0-1.0); Monocytes % (A) 6 %; Neutrophils # (A) 4.4 k/uL (1.3-7.7); Neutrophils % (A) 56 %; Platelet Count 165 k/uL (150-450); Poikilocytosis Slight; RBC 5.02 m/uL (4.30-5.90); WBC 7.7 k/uL (3.8-10.6)
[2021-10-12 09:20] LABS: African American GFR (CKD) 84 (>60 ml/min/1.73 sqM); Anion Gap 7 mmol/L; Blood Urea Nitrogen 11 mg/dL (9-20); Calcium 8.4 mg/dL (8.4-10.2); Carbon Dioxide 25 mmol/L (22-30); Chloride 107 mmol/L (98-107); Glucose 90 mg/dL (74-99); Non-African American GFR(CKD) 73 (>60 ml/min/1.73 sqM); Potassium 3.6 mmol/L (3.5-5.1); Sodium 139 mmol/L (137-145)
[2021-10-12] MEDS: GABAPENTIN 300 MG CAP PO SCH ×2 (11:13→20:40)
[2021-10-12] MEDS: CITALOPRAM HYDROBROMIDE 20 MG TAB PO SCH (11:13)
[2021-10-12] MEDS: atenoloL 25 MG TAB PO SCH (11:13)
[2021-10-12] MEDS: LORATADINE 10 MG TAB PO SCH (11:13)
[2021-10-12] MEDS: CHOLECALCIFEROL 25 MCG (1000 IU) TABLET PO SCH (11:13)
[2021-10-12] MEDS: amLODIPine 10 MG TAB PO SCH (11:13)
[2021-10-12] MEDS: MULTIVITAMINS, THERA 1 EACH TAB PO SCH (11:13)
[2021-10-12] MEDS: MECLIZINE 25 MG TAB PO SCH ×3 (11:13→20:41)
[2021-10-12] MEDS: PANTOPRAZOLE 40 MG/10 ML VIAL IV SCH (11:14)
--- NOTE | 2021-10-12 14:23 | P.PN ---
Subjective Progress Note Date: 10/12/21 The patient stated his dizziness is much better compared to initial presentation but has not resolved. He did not have visual hallucination when he closed his eyes. Objective - Vital Signs Vital signs: Vital Signs Temp 97.8 F 10/12/21 07:20 Pulse 63 10/12/21 13:53 Resp 18 10/12/21 13:53 BP 127/65 10/12/21 07:20 Pulse Ox 94 L 10/12/21 07:20 Intake & Output 10/11/21 10/12/21 10/12/21 18:59 06:59 18:59 Intake Total 118 300 Output Total 400 380 Balance -282 -80 Intake: Oral 118 300 Output: Urine 400 380 Other: Voiding Method Urinal Urinal Urinal # Voids 2 # Bowel Movements 0 - Exam GENERAL: The patient is lying in bed and is mild acute distress. NEUROLOGICAL: Higher mental function: The patient is awake, alert, oriented to self, place and time. Patient is following commands. No aphasia and no neglect. Cranial nerves: The pupils are round, equal and reactive to light and accommodation. Visual mclean are full to confrontation throughout. Extraocular movement is rotatory nystagmus looking to left and upward. Facial sensation is normal to touch throughout. The facial strength is normal throughout. Hearing is mildly decreased bilaterally to hand rub. Tongue is midline and moved [id number] without any difficulty. No dysarthria is noted. Shoulder shrug is normal bilaterally. Motor: Gait was attempted but patient was feeling dizzy and could not tolerate stand up. The strength is 5 over 5 throughout. Normal tone and bulk. Cerebellum: Normal finger to nose heel to osborne bilaterally. Sensation: Sensation is normal to touch throughout. Reflexes (right/left): 2+ throughout. Plantars are downgoing bilaterally. WORK-UP: CT of the head is reported as no acute intracranial process. CT and drug. The head and neck was reported as no evidence of dissection of cervical internal carotid arteries or vertebral arteries or any evidence of significant stenosis of the carotid bifurcation. No evidence of high-grade stenosis or intracranial aneurysm. - Labs CBC & Chem 7: 10/12/21 06:30 10/12/21 06:57 Labs: Abnormal Lab Results - Last 24 Hours (Table) 10/12/21 Range/Units 06:30 Hgb 11.8 L (13.0-17.5) gm/dL Hct 38.1 L (39.0-53.0) % MCV 76.0 L (80.0-100.0) fL MCH 23.5 L (25.0-35.0) pg RDW 17.0 H (11.5-15.5) % Assessment and Plan Assessment: Acute vertigo and is seems the peripheral rather than central. Appears acute vestibular labyrinthitis.---improving Memory loss for past two years: Rule out any pseudo-demential/cognitive imp airement/neurodegenerative disease Hypertension Thalasemia Plan: Ordered MRI Brain and IAC w/ and w/o. On Melizine 25mg 1 tab tid sheduled. Continue Zofran 4 mg every hours as needed. Consulted for PT and OT for gait training. Recommend the patient to follow-up with ENT and possible consider vestibular rehab therapy as an outpatient. Regarding his memory loss for 2 years and visual hallcination for 2-3 days: Pending MRI Brain and will obtain TSH, folate, vitamin B12, RPR. Rule out pseudo-dementia and neurodegenerative disease. Further work-up/investigation as outpatient. Preliminary EEG: Normal. There is no epileptiform discharges or seizure on the EEG. Recommend neuropsych evaluation as outpatient for detail mental status examination. Defer the rest of the medical management to primary team The plan is discussed with the patient. If MRI Is negative patient is clear for discharge from neurological perspective. John Paul M.D. Neuro-hospitalist Time with Patient: Less than 30
--- NOTE | 2021-10-12 15:20 | EEG ---
ELECTROENCEPHALOGRAM REPORT DATE OF SERVICE: 10/12/2021 CLINICAL HISTORY: This is a 76-year-old gentleman who has altered mental status. The video EEG is obtained to evaluate for seizure epileptiform activity. Relevant medications: The patient is not on any antiepileptic drugs. EEG TYPE: A routine 21-channel EEG is performed with video using the 10/20 electrode placement system. DESCRIPTION: Wakefulness is only obtained. During awake state the posterior-dominant rhythm consists of low voltage of 8 to 8.5 hertz that is poorly modulated, poorly sustained. There is no physiological sleep architecture seen. There is no focal slowing. There is moderate to significant myogenic artifact over the left frontal and right temporal regions. Interictal and ictal is none. ACTIVATION PROCEDURE: Photic stimulation and hyperventilation are not performed. CLINICAL INTERPRETATION: This is a normal routine EEG. There is no focal slowing, epileptiform discharge or seizure on the EEG. Clinical correlation is recommended. THONG / YAQUELIN: [id number] / [email or web address]
[2021-10-12] MEDS: SODIUM CHLORIDE 0.9% 1,000 ML IV SCH (17:44)
[2021-10-12] MEDS: ASCORBIC ACID 500 MG TAB PO SCH (20:40)
[2021-10-12] MEDS: FAMOTIDINE 20 MG TAB PO SCH (20:40)
[2021-10-12] MEDS: FERROUS SULFATE 325 MG TAB PO SCH (20:41)
[2021-10-13] MEDS: SODIUM CHLORIDE 0.9% 1,000 ML IV SCH (05:42)
[2021-10-13] MEDS ORDERED: PANTOPRAZOLE 40 MG TABLET PO SCH (07:30)
[2021-10-13] MEDS: MECLIZINE 25 MG TAB PO SCH ×2 (09:48→16:57)
[2021-10-13] MEDS: CITALOPRAM HYDROBROMIDE 20 MG TAB PO SCH (09:48)
[2021-10-13] MEDS: GABAPENTIN 300 MG CAP PO SCH (09:48)
[2021-10-13] MEDS: MULTIVITAMINS, THERA 1 EACH TAB PO SCH (09:49)
[2021-10-13] MEDS: CHOLECALCIFEROL 25 MCG (1000 IU) TABLET PO SCH (09:49)
[2021-10-13] MEDS: amLODIPine 10 MG TAB PO SCH (09:49)
[2021-10-13] MEDS: LORATADINE 10 MG TAB PO SCH (09:49)
[2021-10-13] MEDS: atenoloL 25 MG TAB PO SCH (09:49)
[2021-10-13 14:43] VITALS: BP 133/77; PULSE 61; RESP 18; TEMP 98.4
--- NOTE | 2021-10-13 15:08 | MR ---
EXAMINATION TYPE: MR brain and iac wo/w con DATE OF EXAM: 10/13/2021 COMPARISON: CT brain from 4 days ago. HISTORY: Vertigo TECHNIQUE: Multiplanar, multisequence images of the brain and brainstem along with internal auditory canals are all performed without and with IV contrast, utilizing 9 mL intravenous Gadavist . FINDINGS: Diffusion weighted images demonstrate no evidence of a recent infarct or other diffusion ab normality. There is mild ventricular and sulcal prominence. Occasional scattered focus of T2 hyperin tensity seen throughout the white matter bilaterally. Approximately 5-10 tiny scattered lesions are s een. Lesions are nonspecific in appearance and distribution. Midline structures demonstrate normal morphology. The craniocervical junction appears within normal limits. Post contrast images demonstrate no abnormal enhancement. The dural venous sinuses appear pa tent. The visualized sinuses are clear and the globes are intact. Mastoid air cells show no suspicious opacification bilaterally. Vestibulocochlear complexes are symme tric and within normal limits. There is no suspicious enhancing cerebellopontine angle mass identifie d bilaterally. IMPRESSION: Mild diffuse age-related cerebral atrophy and chronic small vessel ischemic change. Sourc e of patient's symptoms of vertigo not clearly identified.
--- NOTE | 2021-10-13 15:47 | P.PN ---
Subjective Progress Note Date: 10/12/21 This is a 76-year-old gentleman admitted with vertigo, dizziness, possible peripheral vestibular labryrinthitis, possible CVA and multiple other medical issues. Blood pressure better controlled on Norvasc. Patient currently undergoing EEG. Objective - Vital Signs Vital signs: Vital Signs Temp 97.8 F 10/12/21 07:20 Pulse 63 10/12/21 13:53 Resp 18 10/12/21 13:53 BP 127/65 10/12/21 07:20 Pulse Ox 94 L 10/12/21 07:20 Intake & Output 10/11/21 10/12/21 10/12/21 18:59 06:59 18:59 Intake Total 118 300 Output Total 400 380 Balance -282 -80 Intake: Oral 118 300 Output: Urine 400 380 Other: Voiding Method Urinal Urinal Urinal # Voids 2 # Bowel Movements 0 - Exam Physical exam, not perform, patient currently undergoing EEG - Labs CBC & Chem 7: 10/12/21 06:30 10/12/21 06:57 Assessment and Plan Assessment: Acute vertigo, possible peripheral vestibular labryinthitis, improving, ruling out CVA, MRI of brain pending Hypertension Thalassemia Gastroesophageal reflux disease Plan: Continue on current medication regime ,monitoring and symptomatic treatment. Maintain on meclizine. As mentioned above EEG in progress. Discharge planning in progress pending brain MRI, neurology clearance. The impression and plan of care has been dictated as directed. : I performed a history and examination of this patient, discussed the same with the dictator. I agree with the dictator's note ,documented as a scribe. Any additional findings or plans will be noted.
--- NOTE | 2021-10-13 15:56 | P.DS ---
Providers Date of admission: 10/12/21 13:52 Expected date of discharge: 10/13/21 Attending physician: Elbert Berger MD Consults: 10/09/21 22:03 Consult Physician Urgent Consulting Provider: John Paul Consult Reason/Comments: intractable vertigo Do you want consulting provider notified?: Yes Primary care physician: Linda Berger [facility] Hospital Course: Final Diagnoses: Acute vertigo, possible peripheral vestibular labryinthitis, improving, ruling out CVA, MRI of brain pending Hypertension Thalassemia Gastroesophageal reflux disease Hospital course:This is a 76-year-old gentleman admitted with vertigo, dizziness, possible peripheral vestibular labryrinthitis, possible CVA and multiple other medical issues. Blood pressure better controlled on Norvasc. Patient currently undergoing EEG. Reports his dizziness is significantly improved, on Antivert. Denies room spinning, denies headache. Nausea resolved. Right nystagmus present. Brain MRI pending. Brain CT reported no acute intracranial process. CT of head and neck reported no evidence of dissection of the cervical internal carotid arteries or vertebral arteries or any evidence of significant stenosis at the c arotid bifurcations, no evidence of high-grade stenosis or intracranial aneurysm. EGD reported normal routine EEG, no focal slowing or epileptiform discharge or seizure. Significant clinical improvement, currently sitting up, tolerating well. Patient will be discharged home today in a stable condition with guarded prognosis pending MRI completion with MRA review ,final DC recommendations and clearance per neurology. Neuropsych evaluation outpatient for detail mental status examination recommended per neurology. The impression and plan of care has been dictated as directed. : I performed a history and examination of this patient, discussed the same with the dictator. I agree with the dictator's note ,documented as a scribe. Any additional findings or plans will be noted. Patient Condition at Discharge: Stable Plan - Discharge Summary New Discharge Prescriptions: New Meclizine [Antivert] 12.5 mg PO Q8HR PRN #1 tablet PRN Reason: Vertigo amLODIPine [Norvasc] 10 mg PO DAILY #30 tab Continue Loratadine 10 mg PO DAILY Ferrous Sulfate [Iron (65 MG Elemental)] 325 mg PO HS Famotidine [Pepcid] 40 mg PO HS Gabapentin 600 mg PO BID Cholecalciferol [Vitamin D3 (25 Mcg = 1000 Iu)] 50 mcg PO DAILY Citalopram Hydrobromide [CeleXA] 20 mg PO DAILY atenoloL [Tenormin] 25 mg PO DAILY Ascorbic Acid [Vitamin C] 500 mg PO HS Multivit-Min/Folic/Vit K/Lycop [Men's Multivitamin Tablet] 1 tab PO DAILY Discharge Medication List Ascorbic Acid [Vitamin C] 500 mg PO HS 09/29/21 [History] Cholecalciferol [Vitamin D3 (25 Mcg = 1000 Iu)] 50 mcg PO DAILY 09/29/21 [History] Citalopram Hydrobromide [CeleXA] 20 mg PO DAILY 09/29/21 [History] Famotidine [Pepcid] 40 mg PO HS 09/29/21 [History] Ferrous Sulfate [Iron (65 MG Elemental)] 325 mg PO HS 09/29/21 [History] Gabapentin 600 mg PO BID 09/29/21 [History] Loratadine 10 mg PO DAILY 09/29/21 [History] Multivit-Min/Folic/Vit K/Lycop [Men's Multivitamin Tablet] 1 tab PO DAILY 09/29/21 [History] atenoloL [Tenormin] 25 mg PO DAILY 09/29/21 [History] Meclizine [Antivert] 12.5 mg PO Q8HR PRN #1 tablet 10/13/21 [Rx] amLODIPine [Norvasc] 10 mg PO DAILY #30 tab 10/13/21 [Rx] Follow up Appointment(s)/Referral(s): Linda Berger DO [Primary Care Provider] - 3 Days Activity/Diet/Wound Care/Special Instructions: Patient to follow-up with ENT of choice in 1 week.
--- NOTE | 2021-10-13 16:00 | P.PN ---
Subjective Progress Note Date: 10/13/21 The patient is seen at bedside and he feels he is doing better today compared to initial presentation. His dizziness has been drastically improving but is not back to baseline. Objective - Vital Signs Vital signs: Vital Signs Temp 98.4 F 10/13/21 14:42 Pulse 61 10/13/21 14:42 Resp 18 10/13/21 14:42 BP 133/77 10/13/21 14:42 Pulse Ox 95 10/13/21 14:42 Intake & Output 10/12/21 10/13/21 10/13/21 18:59 06:59 18:59 Intake Total 300 301 Output Total 810 850 Balance -510 -549 Intake: Oral 300 301 Output: Urine 810 850 Other: Voiding Method Urinal Urinal Toilet Urinal # Voids 2 2 2 - Exam GENERAL: The patient is lying in bed and is mild acute distress. NEUROLOGICAL: Higher mental function: The patient is awake, alert, oriented to self, place and time. Patient is following commands. No aphasia and no neglect. Cranial nerves: The pupils are round, equal and reactive to light and accommodation. Visual mclean are full to confrontation throughout. Extraocular movement is rotatory nystagmus looking to left and upward. Facial sensation is normal to touch throughout. The facial strength is normal throughout. Hearing is mildly decreased bilaterally to hand rub. Tongue is midline and moved [id number] without any difficulty. No dysarthria is noted. Shoulder shrug is normal bilaterally. Motor: Gait was attempted but patient was feeling dizzy and could not tolerate stand up. The strength is 5 over 5 throughout. Normal tone and bulk. Cerebellum: Normal finger to nose heel to osborne bilaterally. Sensation: Sensation is normal to touch throughout. Reflexes (right/left): 2+ throughout. Plantars are downgoing bilaterally. WORK-UP: TSH is 2.82, serum folate is 19.5, vitamin B-12 is 384. Treponema pallidum is nonreactive. CT of the head is reported as no acute intracranial process. CT and drug. The head and neck was reported as no evidence of dissection of cervical internal carotid arteries or vertebral arteries or any evidence of significant stenosis of the carotid bifurcation. No evidence of high-grade stenosis or intracranial aneurysm. MRI Brain and IAC w/ and w/o: Reported as mild diffuse age-related cerebral atrophy and chronic small vessel ischemic changes. Source of patient's symptoms of vertigo not clearly identified. Routine EEG on 10/12/2021 is normal. There is no focal slowing, epileptiform discharges or seizure on EEG. - Labs CBC & Chem 7: 10/12/21 06:30 10/12/21 06:57 Assessment and Plan Assessment: Acute vertigo and is due peripheral cause (no Stroke on MRI).--symptoms imp roving. Memory loss for past two years: Rule out any pseudo-demential/cognitive impairement/neurodegenerative disease Hypertension Thalasemia Plan: On Melizine 25mg 1 tab tid sheduled. Continue Zofran 4 mg every hours as needed. PT and OT for gait training. Recommend the patient to follow-up with ENT and possible consider vestibular rehab therapy as an outpatient. Regarding his memory loss for 2 years and visual hallcination for 2-3 days but improved last 2 days: Further work-up/investigation as outpatient. Rule out neurodegenerative disease. Recommend neuropsych evaluation as outpatient for detail mental status examination. Defer the rest of the medical management to primary team The plan is discussed with the patient and his nurse. There is no further neurological work-up. Patient is clear for discharge from neurological perspective. John Paul M.D. Neuro-hospitalist Time with Patient: Less than 30
== END 2021-10-13 18:00 | disposition home or self-care (01) | DRG 149 ==
LOC: EC 17:45 → 6NMEDSUR 22:02 → OBSVTOIN 10-12 13:52
PROVIDERS: ADMIT Family Medicine; ATTEND Family Medicine
DX: H83.09 Labyrinthitis, unspecified ear (principal); D56.9 Thalassemia, unspecified; H55.00 Unspecified nystagmus; M54.30 Sciatica, unspecified side; I10 Essential (primary) hypertension; F32.A Depression, unspecified; K21.9 Gastro-esophageal reflux disease without esophagitis; Z79.899 Other long term (current) drug therapy; Z88.0 Allergy status to penicillin; Z83.79 Family history of other diseases of the digestive system; Z83.6 Family history of other diseases of the respiratory system; Z28.310 Unvaccinated for COVID-19; Z98.890 Other specified postprocedural states; Z90.49 Acquired absence of other specified parts of digestive tract
CPT/HCPCS: 36415; 70450; 70496; 70498; 70553; 80048; 80053; 81003; 82607; 82746; 84443; 84484; 85025; 85610; 86780; 93005; 95816; 96374; 96375; 99285